=== PATIENT | male | born 1965 | race Hispanic/Latino ===

== ENCOUNTER 2021-09-01 04:49 | Inpatient (IN) | payer SELFPAY ==
[~2021-09-01] VITALS: Ht 167.6 cm; Wt 86.2 kg
[2021-09-01] MEDS ORDERED: SODIUM CHLORIDE 0.9% 1000ML 1,000 ML IV STA (05:34)
[2021-09-01] MEDS ORDERED: ONDANSETRON HCL INJ 2MG/ML 2ML 2 MG/ML VIAL IV PRN (05:45)
[2021-09-01 05:54] LABS: BASOPHILS % 0.3 % (0.0-1.0); EOSINOPHILS # (AUTO) 0.3 (0.0-0.4); EOSINOPHILS % 2.5 % (0.0-6.0); HEMATOCRIT 28.1 % (38.2-49.6); HEMOGLOBIN 9.1 g/dL (14.0-18.0); LYMPHOCYTES # (AUTO) 1.4 (1.0-3.2); MEAN CORPUSCULAR HEMOGLOBIN 29.9 pg (28-32); MEAN CORPUSCULAR HGB CONC 32.4 g/dL (31-35); MEAN CORPUSCULAR VOLUME 92.4 fL (81-99); MONOCYTES # (AUTO) 0.9 (0.2-0.8); MONOCYTES % 7.8 % (4.4-11.3); NEUTROPHILS # (AUTO) 9.2 (2.1-6.9); NEUTROPHILS % 76.9 % (38.7-80.0); PLATELET COUNT 249 x10e3/uL (140-360); RED BLOOD COUNT 3.04 x10e6/uL (4.3-5.7); RED CELL DISTRIBUTION WIDTH 14.9 % (11.7-14.4)
[2021-09-01 06:14] LABS: ALBUMIN 3.3 g/dL (3.5-5.0); ALBUMIN/GLOBULIN RATIO 0.8 (0.8-2.0); ALKALINE PHOSPHATASE 85 IU/L (40-150); ANION GAP 20.1 mmol/L (8-16); BLOOD UREA NITROGEN 76 mg/dL (7-26); BUN/CREATININE RATIO 9 (6-25); CALCIUM 7.1 mg/dL (8.4-10.2); CARBON DIOXIDE 19 mmol/L (22-29); CHLORIDE 108 mmol/L (98-107); CREATININE, SERUM 8.12 mg/dL (0.72-1.25); EST GLOMERULAR FILTRATION RATE 7 ML/MIN (60-); GLUCOSE 113 mg/dL (74-118); LIPASE 49 U/L (8-78); POTASSIUM 4.1 mmol/L (3.5-5.1); SODIUM 143 mmol/L (136-145)
[2021-09-01 06:16] LABS: ALANINE AMINOTRANSFERASE < 6 IU/L (0-55)
[2021-09-01] MEDS ORDERED: SODIUM CHLORIDE 0.9% 1000ML 1,000 ML IV SCH (08:30)
[2021-09-01 08:32] LABS: BACTERIA,URINE FEW /HPF; CLARITY,URINE SL CLOUDY (CLEAR); COLOR,URINE YELLOW (YELLOW); EPITHELIAL CELLS,URINE FEW /LPF; KETONES,URINE NEGATIVE (NEGATIVE); LEUKOCYTE ESTERASE ,URINE NEGATIVE (NEGATIVE); NITRITE,URINE NEGATIVE (NEGATIVE); PROTEIN,URINE DIPSTICK >=300 (NEGATIVE); URINE UROBILINOGEN 0.2 mg/dL (0.2 - 1); WBC,URINE (MAN) 0-5 /HPF (0-5)
[2021-09-01 09:15] LABS: INR 1.05; PROTHROMBIN TIME 14.6 seconds (11.9-14.5)
[2021-09-01] MEDS ORDERED: HYDRALAZINE HCL 20 MG/ML VIAL IV PRN ×2 (10:30→22:30)
[2021-09-01] MEDS: CLONIDINE HCL 0.1 MG TAB PO SCH ×3 (10:59→21:35)
[2021-09-01] MEDS ORDERED: HEPARIN SOD (PORCINE) 1000 UNIT/ML SDV ONE (11:46)
[2021-09-01 12:22] LABS: CREATININE,URINE RANDOM 64.12 mg/dL (63-166)
[2021-09-01 12:57] LABS: TOTAL PROTEIN, URINE 477.6 mg/dL (1-14)
[2021-09-01] MEDS ORDERED: LIDOCAINE HCL 1% LOCAL INJ 20 ML VIAL ONE (13:08)
[2021-09-01] MEDS ORDERED: HYDRALAZINE HCL 20 MG/ML VIAL ONE (13:45)
[2021-09-01 14:00] VITALS: BP 178/92
[2021-09-01] MEDS ORDERED: SODIUM CHLORIDE 0.9% 250ML 500 ML IV PRN (14:30)
[2021-09-01] MEDS ORDERED: MANNITOL 25% 12.5GM/50 ML VIAL IV PRN (14:30)
[2021-09-01] MEDS ORDERED: ALBUMIN 25% 12.5GM 0.25 GM/ML BTL IV PRN (14:30)
[2021-09-01] MEDS ORDERED: SODIUM CHLORIDE 0.9% 1000ML 2,000 ML IV PRN (14:30)
[2021-09-01] MEDS ORDERED: MANNITOL 20% 500ML 500 ML IV PRN (15:00)
[2021-09-01 20:00] VITALS: BP 182/82
[2021-09-01] MEDS ORDERED: METOPROLOL TARTRATE INJ 1 MG/ML VIAL IV PRN (22:30)
[2021-09-01 23:16] VITALS: BP 182/82
[2021-09-01 23:18] VITALS: BP 182/82
[2021-09-02] VITALS (10 sets, daily range): BP systolic 97–170; BP diastolic 18–83
[2021-09-02 05:02] LABS: BASOPHILS % 0.4 % (0.0-1.0); EOSINOPHILS # (AUTO) 0.1 (0.0-0.4); EOSINOPHILS % 1.2 % (0.0-6.0); HEMOGLOBIN 8.3 g/dL (14.0-18.0); LYMPHOCYTES # (AUTO) 0.7 (1.0-3.2); LYMPHOCYTES % 7.7 % (18.0-39.1); MEAN CORPUSCULAR HEMOGLOBIN 30.2 pg (28-32); MEAN CORPUSCULAR HGB CONC 31.9 g/dL (31-35); MEAN CORPUSCULAR VOLUME 94.5 fL (81-99); MONOCYTES # (AUTO) 0.8 (0.2-0.8); MONOCYTES % 8.1 % (4.4-11.3); NEUTROPHILS # (AUTO) 7.6 (2.1-6.9); NEUTROPHILS % 82.3 % (38.7-80.0); PLATELET COUNT 224 x10e3/uL (140-360); RED BLOOD COUNT 2.75 x10e6/uL (4.3-5.7)
[2021-09-02 05:32] LABS: ALBUMIN 2.9 g/dL (3.5-5.0); ALBUMIN/GLOBULIN RATIO 0.9 (0.8-2.0); ALKALINE PHOSPHATASE 92 IU/L (40-150); ANION GAP 19.1 mmol/L (8-16); BLOOD UREA NITROGEN 51 mg/dL (7-26); BUN/CREATININE RATIO 8 (6-25); CARBON DIOXIDE 22 mmol/L (22-29); CHLORIDE 105 mmol/L (98-107); EST GLOMERULAR FILTRATION RATE 9 ML/MIN (60-); GLUCOSE 98 mg/dL (74-118); POTASSIUM 4.1 mmol/L (3.5-5.1); SODIUM 142 mmol/L (136-145)
[2021-09-02 05:53] LABS: ALANINE AMINOTRANSFERASE < 6 IU/L (0-55); CALCIUM 6.9 mg/dL (8.4-10.2)
[2021-09-02] MEDS: CLONIDINE HCL 0.1 MG TAB PO SCH (09:15)
[2021-09-02] MEDS ORDERED: SODIUM CHLORIDE 0.9% 250ML 500 ML IV PRN (11:30)
[2021-09-02] MEDS ORDERED: SODIUM CHLORIDE 0.9% 1000ML 2,000 ML IV PRN (11:30)
[2021-09-02] MEDS ORDERED: HEPARIN SOD (PORCINE) 1000 UNIT/ML SDV IV PRN (11:30)
[2021-09-02] MEDS ORDERED: EPOETIN ALFA-EPBX 10,000 UNIT/ML VIAL SC ONE (11:45)
[2021-09-02] MEDS: CARVEDILOL 12.5 MG TAB PO SCH ×2 (13:05→17:03)
[2021-09-02] MEDS: AMLODIPINE BESYLATE 5 MG TAB PO SCH (17:03)
[2021-09-03] VITALS (9 sets, daily range): BP systolic 124–155; BP diastolic 64–83
[2021-09-03 05:02] LABS: BASOPHILS % 0.4 % (0.0-1.0); EOSINOPHILS # (AUTO) 0.3 (0.0-0.4); EOSINOPHILS % 4.4 % (0.0-6.0); HEMATOCRIT 25.5 % (38.2-49.6); HEMOGLOBIN 8.2 g/dL (14.0-18.0); LYMPHOCYTES # (AUTO) 0.7 (1.0-3.2); LYMPHOCYTES % 10.5 % (18.0-39.1); MEAN CORPUSCULAR HEMOGLOBIN 30.3 pg (28-32); MEAN CORPUSCULAR HGB CONC 32.2 g/dL (31-35); MEAN CORPUSCULAR VOLUME 94.1 fL (81-99); MONOCYTES # (AUTO) 1.2 (0.2-0.8); MONOCYTES % 16.9 % (4.4-11.3); NEUTROPHILS # (AUTO) 4.6 (2.1-6.9); NEUTROPHILS % 67.5 % (38.7-80.0); PLATELET COUNT 202 x10e3/uL (140-360); RED BLOOD COUNT 2.71 x10e6/uL (4.3-5.7); RED CELL DISTRIBUTION WIDTH 14.6 % (11.7-14.4)
[2021-09-03 05:26] LABS: ALBUMIN 2.8 g/dL (3.5-5.0); ALBUMIN/GLOBULIN RATIO 0.8 (0.8-2.0); ALKALINE PHOSPHATASE 79 IU/L (40-150); ANION GAP 14.8 mmol/L (8-16); CALCIUM 7.3 mg/dL (8.4-10.2); CARBON DIOXIDE 26 mmol/L (22-29); CHLORIDE 102 mmol/L (98-107); CHOL/HDL RATIO 5.3 (3.9-4.7); CHOLESTEROL 132 MD/DL (0-199); CREATININE, SERUM 5.14 mg/dL (0.72-1.25); EST GLOMERULAR FILTRATION RATE 12 ML/MIN (60-); GLUCOSE 98 mg/dL (74-118); HDL CHOLESTEROL 25 MG/DL (40-60); LDL CHOLESTEROL 82 MG/DL (60-130); MAGNESIUM 2.1 MG/DL (1.3-2.1); PHOSPHORUS 4.3 MG/DL (2.3-4.7); POTASSIUM 3.8 mmol/L (3.5-5.1); SODIUM 139 mmol/L (136-145); TRIGLYCERIDES 124 MG/DL (0-149)
[2021-09-03 05:36] LABS: ALANINE AMINOTRANSFERASE < 6 IU/L (0-55)
[2021-09-03 05:47] LABS: THYROID STIMULATING HORMONE 1.208 uIU/mL (0.350-4.940)
[2021-09-03 05:48] LABS: FERRITIN 277.31 ng/mL (21.81-274.66)
[2021-09-03 06:36] LABS: BLOOD UREA NITROGEN 32 mg/dL (7-26); BUN/CREATININE RATIO 6 (6-25)
[2021-09-03] MEDS: AMLODIPINE BESYLATE 5 MG TAB PO SCH (08:40)
[2021-09-03] MEDS: CARVEDILOL 12.5 MG TAB PO SCH ×2 (08:40→20:29)
[2021-09-03] MEDS: GUAIFENESIN 600 MG TAB PO PRN ×2 (12:15→20:15)
[2021-09-04] VITALS (7 sets, daily range): BP systolic 137–151; BP diastolic 59–75
[2021-09-04 08:49] LABS: ALBUMIN 2.8 g/dL (3.5-5.0); ALBUMIN/GLOBULIN RATIO 0.9 (0.8-2.0); CALCIUM 7.1 mg/dL (8.4-10.2); CREATININE, SERUM 6.64 mg/dL (0.72-1.25)
[2021-09-04] MEDS: AMLODIPINE BESYLATE 5 MG TAB PO SCH ×2 (09:02→20:30)
[2021-09-04] MEDS: CARVEDILOL 12.5 MG TAB PO SCH ×2 (09:02→20:30)
[2021-09-05] VITALS (7 sets, daily range): BP systolic 128–155; BP diastolic 67–74
[2021-09-05] MEDS: AMLODIPINE BESYLATE 5 MG TAB PO SCH ×2 (07:45→20:50)
[2021-09-05] MEDS: CARVEDILOL 12.5 MG TAB PO SCH ×2 (07:45→20:49)
[2021-09-05] MEDS ORDERED: MIDAZOLAM HCL 2 MG/2 ML VIAL ONE (10:02)
[2021-09-05] MEDS ORDERED: FENTANYL CITRATE/PF 100MCG/2 ML INJ ONE (10:03)
[2021-09-05] MEDS ORDERED: HEPARIN SOD (PORCINE) 1000 UNIT/ML SDV ONE (10:03)
[2021-09-05] MEDS ORDERED: LIDOCAINE HCL 1% LOCAL INJ 20 ML VIAL ONE (10:24)
[2021-09-05] MEDS ORDERED: SODIUM CHLORIDE 0.9% 250ML 250 ML ONE (10:24)
[2021-09-05] MEDS ORDERED: CARVEDILOL 12.5 MG TAB PO NR (11:15)
[2021-09-05] MEDS: GUAIFENESIN 600 MG TAB PO PRN (18:10)
[2021-09-06] VITALS: BP 125/65
[2021-09-06 04:47] VITALS: BP 144/69
[2021-09-06 07:08] LABS: ALBUMIN 2.9 g/dL (3.5-5.0); ALBUMIN/GLOBULIN RATIO 0.9 (0.8-2.0); ANION GAP 17.6 mmol/L (8-16); CALCIUM 7.7 mg/dL (8.4-10.2); CREATININE, SERUM 7.24 mg/dL (0.72-1.25); POTASSIUM 4.6 mmol/L (3.5-5.1)
[2021-09-06 07:39] VITALS: BP 137/68
[2021-09-06] MEDS ORDERED: HEPARIN SOD (PORCINE) 1000 UNIT/ML SDV IV PRN (08:30)
[2021-09-06 08:38] VITALS: BP 137/68
[2021-09-06] MEDS: CARVEDILOL 12.5 MG TAB PO SCH (09:00)
[2021-09-06] MEDS: AMLODIPINE BESYLATE 5 MG TAB PO SCH (09:00)
[2021-09-06] MEDS: GUAIFENESIN 600 MG TAB PO PRN (09:57)
[2021-09-06] MEDS ORDERED: CARVEDILOL12.5 MG PO (18:13)
[2021-09-06] MEDS ORDERED: BENZONATATE100 MG PO (18:14)
[2021-09-06] MEDS ORDERED: ONDANSETRON HCL 4 MG ORAL DISINTEGRATING TAB PO PRN (18:30)
== END 2021-09-06 18:38 | disposition home or self-care (01) | DRG 291 ==
LOC: ER 04:55 → ERHOLD 08:27 → MED/SURG2 13:45
PROVIDERS: ADMIT Family Medicine; ATTEND Family Medicine
PROC: 02HV33Z Insertion of Infusion Device into Superior Vena Cava, Percutaneous Approach (ICD-10-PCS; principal; 2021-09-01)
PROC: 5A1D70Z Performance of Urinary Filtration, Intermittent, Less than 6 Hours Per Day (ICD-10-PCS; 2021-09-01)
PROC: 0JH63XZ Insertion of Tunneled Vascular Access Device into Chest Subcutaneous Tissue and Fascia, Percutaneous Approach (ICD-10-PCS; 2021-09-05)
PROC: 02HV33Z Insertion of Infusion Device into Superior Vena Cava, Percutaneous Approach (ICD-10-PCS; 2021-09-05)
DX: I13.2 Hypertensive heart and chronic kidney disease with heart failure and with stage 5 chronic kidney disease, or end stage renal disease (principal); I50.23 Acute on chronic systolic (congestive) heart failure; N18.6 End stage renal disease; N17.9 Acute kidney failure, unspecified; E11.22 Type 2 diabetes mellitus with diabetic chronic kidney disease; Z99.2 Dependence on renal dialysis; Z79.899 Other long term (current) drug therapy; Z91.15 Patient's noncompliance with renal dialysis; D63.8 Anemia in other chronic diseases classified elsewhere; F17.210 Nicotine dependence, cigarettes, uncomplicated; D63.1 Anemia in chronic kidney disease; E83.51 Hypocalcemia; Z20.822 Contact with and (suspected) exposure to COVID-19; F10.10 Alcohol abuse, uncomplicated
CPT/HCPCS: 36415; 36556; 36558; 71045; 74176; 74470; 76770; 76937; 77001; 80053; 80061; 81001; 82570; 82728; 82948; 83036; 83540; 83690; 83735; 83880; 83970; 84100; 84156; 84443; 84466; 84484; 84550; 85025; 85610; 85730; 86704; 86705; 87350; 93005; 93306; 94799; 99152; 99153; 99284; C1752; C1769; C1892; J0360; J1644; J2001; J2250; J2405; J3010; J7030; J7050; U0002